=== PATIENT | male | born 1950 | race Caucasian/White ===

== ENCOUNTER 2020-06-06 22:29 | Emergency (ER) | payer MEDICARE, OTHER ==
[2020-06-06 22:36] VITALS: BP 151/91
--- NOTE | 2020-06-06 23:31 | ED Physician Documentation ---
History of Present Illness - Stated complaint Stated Complaint: MOUTH BLEEDING - Chief complaint Chief Complaint: Laceration - History obtained from History obtained from: Patient - History of Present Illness Timing: Yesterday - Additonal information Additional information: Previous well 69-year-old male who is had a recent stent placement 2 weeks ago and is on Xarelto for atrial fibrillation has developed some bleeding from his tongue yesterday and he was able to control this with direct pressure and when this occurred again tonight he was not able to control with direct pressure he called the nurse hotline was asked to come to the emergency department for evaluation. They told him he might get an injection to reverse the Xarelto. Review of Systems Constitutional: denies: Fever Eyes: denies: Decreased vision Ears: denies: Ear pain Nose: denies: Rhinorrhea / runny nose, Congestion Throat: reports: Oral lesions / sores. denies: Dental pain / toothache, Sore throat Cardiac: denies: Chest pain / pressure, Palpitations Respiratory: denies: Dyspnea, Cough PD PAST MEDICAL HISTORY - Past Medical History Past Medical History: Yes Cardiovascular: Atrial fibrillation HEENT: Glaucoma - Present Medications Home Medications: Ambulatory Orders Medication Instructions Recorded Confirmed Atorvastatin [Lipitor] 06/06/20 Ketorolac 0.45% Ophth Drops 06/06/20 [Acuvail] Losartan [Cozaar] 06/06/20 Metoprolol Succinate [Toprol Xl] 06/06/20 Rivaroxaban [Xarelto] 06/06/20 - Allergies Allergies/Adverse Reactions: Allergies Allergy/AdvReac Type Severity Reaction Status Date / Time No Known Drug Allergies Allergy Verified 06/06/20 22:34 - Social History Does the pt smoke?: No Smoking Status: Never smoker Does the pt drink ETOH?: No Does the pt have substance abuse?: No - Immunizations Immunizations are current?: Yes PD ED PE NORMAL - Vitals Vital signs reviewed: Yes (Hypertensive) - General General: Alert and oriented X 3, No acute distress, Well developed/nourished - HEENT HEENT: Atraumatic, PERRL, EOMI, Other (On the tongue approximately in the middle area to the left there are 3 small abrasions which have no current bleeding. There is no specific appearance to the area it does appear bruised.) - Respiratory Respiratory: No respiratory distress - Derm Derm: Normal color, Warm and dry, No rash - Extremities Extremities: No deformity, No edema - Neuro Neuro: Alert and oriented X 3, irb compliance coordinator 2-12 intact, No motor deficit, No sensory deficit, Normal speech Eye Opening: Spontaneous Motor: Obeys Commands Verbal: Oriented GCS Score: 15 - Psych Psych: Normal mood, Normal affect Results - Vitals Vitals: Vital Signs - 24 hr 06/06/20 22:31 Temperature 36.5 C Heart Rate 87 Respiratory 16 Rate Blood Pressure 151/91 H O2 Saturation 100 Oxygen O2 Source Room air PD MEDICAL DECISION MAKING - ED course Complexity details: considered differential, d/w patient ED course: 69-year-old previously well male with history of atrial fibrillation and coronary artery disease is on Xarelto he has a bicuspid aortic valve and he is on Plavix. Since yesterday he has had difficulty with some bleeding from his tongue he was able to control yesterday with direct pressure today here in the emergency department I have had the patient show me how he placed pressure on his tongue and he reached into his mouth grabbed his tongue and placed pressure above where the areas of bleeding were. He was not directly over the areas of bleeding. He has nonlife-threatening bleeding on Xarelto in an area where he can directly compress and I have instructed the patient to apply direct pressure to the area and to visualize this with a mirror and expect to have resolution within a 10- minute period of time. I have asked patient to follow-up with his patient accounting representative about reducing his dose of Xarelto if he continues to have this problem as she is recently been placed on Plavix he will likely need to be on this for the next year. Departure - Departure Disposition: 01 Home, Self Care Clinical Impression: Hemorrhage of tongue Condition: Stable Instructions: Rivaroxaban oral tablets Follow-Up: Gini Chowdary MD [Primary Care Provider] - Comments: Today it appears you are having nonlife-threatening bleeding from an area that can be directly compressed. You have been able to control your bleeding tonight and the expectation is that you would be able to control this bleeding with about 10 minutes of direct pressure. If you have rebleeding apply direct pressure and look in the mirror to be certain you are right over the area. If you continue to have problems with intermittent bleeding talk to your patient accounting representative about possibly reducing the dose of Xarelto.
== END 2020-06-06 23:37 | disposition home or self-care (01) ==
LOC: ED 22:29
DX: K13.79 Other lesions of oral mucosa (principal); K14.8 Other diseases of tongue; I48.91 Unspecified atrial fibrillation; Z79.01 Long term (current) use of anticoagulants; Z95.2 Presence of prosthetic heart valve
CPT/HCPCS: 99281; 99284

== ENCOUNTER 2022-09-22 14:31 | Outpatient (CLI) | payer MEDICARE, OTHER ==
--- NOTE | 2022-09-22 15:35 | XRAY Report ---
PROCEDURE: Chest 2 View X-Ray INDICATIONS: PLEURAL EFFUSION ON RIGHT TECHNIQUE: 2 views of the chest were acquired. COMPARISON: None. FINDINGS: Sternotomy wires and cardiac clips device. Mild to moderate right effusion and underlying opacity. Mild left suspected atelectasis or aspiration . Heart borders are obscured, borderline cardiomegaly. No acute or suspicious osseous finding. IMPRESSION: Mild to moderate right pleural effusion and underlying opacity, possibly airspace disease and/or atel ectasis. Consider future imaging surveillance to assess for resolution. Reviewed by: Giovani Gregory MD on 09/22/2022 3:34 PM PDT Approved by: Giovani Gregory MD on 09/22/2022 3:34 PM PDT Station ID: [id number]
== END 2022-09-22 14:32 | disposition home or self-care (01) ==
LOC: DI.S 14:31
PROVIDERS: ATTEND Surgery
DX: J90 Pleural effusion, not elsewhere classified (principal)